=== PATIENT | female | born 1955 | race Caucasian/White ===

== ENCOUNTER 2017-09-13 14:51 | Observation (INO) | payer BC, OTHER ==
[~2017-09-13] VITALS: Ht 162.6 cm; Wt 108.4 kg
[~2017-09-13 14:51] MED LIST: ARMOUR THYROID90 MG PO; ATORVASTATIN CA20 MG PO; BUPROPION HCL75 MG PO; CELEBREX PO; CLARITIN-D 241 EACH PO; CLARITIN10 MG PO; COREG3.125 MG PO; CYMBALTA30 MG PO; CYMBALTA60 MG PO; DIFLUCAN100 MG PO; DIOVAN160 MG PO; DUONEB 0.5 MG-33 ML IH; FLAGYL500 MG PO; FLONASE16 GM; HUMALOG MI100 UNIT/4 SQ; HUMALOG100 UNITS/ SC; IPRAT-ALBUT 0.5-3 ML INH; KEFLEX500 MG PO; LANTUS100 UNITS/ SC; LASIX40 MG PO; LEVEMIR 3M100 UNITS/ SQ; LISINOPRIL20 MG PO; METFORMIN HCL500 MG PO; MUCINEX600 MG PO; NEXIUM40 MG PO; PRAVASTATIN SOD20 MG PO; PREDNISONE10 MG PO; SYMBICORT 16010.2 GM IH; SYNTHROID112 MCG PO; TESSALON PERLE100 MG PO; TOUJEO SC; TUSSIN100 MG/5 M PO; VICTOZA 2-0.6 MG/0.1 SC
--- OUTSIDE RECORDS SUMMARY | 2017-09-13 14:54 | XMS REPORT | Summary of Care ---
Author Author Maribeth Almanzar Organization Unknown Address Unknown Phone Unavailable Care Team Providers [facility] [employer] Name Role Phone MARCELA Garay, LUIZ Unavailable Unavailable PAT Garay, JUAN Unavailable Unavailable DEBORAH Garay, EFRAÍN Unavailable Unavailable JOVANNI Garay, KIMBERLEE Unavailable Unavailable Maribeth Almanzar Unavailable Unavailable MARCELA CHARLES [place], LUIZ Woods Unavailable Unavailable ADELA CHARLES, MAYITO Unavailable Unavailable Unavailable Unavailable Functional Status Name Dates Details Functional status health issues are not documented Status: Name Dates Details Cognitive status health issues are not documented Status: Problems Name Dates Details Sleep apnea (780.57, G47.30) Status: Active Sleep talking (307.49, G47.8) Status: Active Obesity (278.00, E66.9) Status: Active ELISE (obstructive sleep apnea) (327.23, G47.33) Status: Active Flu vaccine need (V04.81, Z23) Status: Active Fibromyalgia (729.1, M79.7) Status: Active Bilateral pain of leg and foot (729.5, M79.604) Status: Active Anxiety (300.00, F41.9) Status: Active Lymph edema (457.1, I89.0) Status: Active Need for Zostavax administration (V04.89, Z23) Status: Active Need for pneumococcal vaccination (V03.82, Z23) Status: Active Decreased pedal pulses (785.9, R09.89) Status: Active Caloric malnutrition (263.9, E46) Status: Active Encounter for preventive health examination (V70.0, Z00.00) Status: Active Well woman exam (V72.31, Z01.419) Status: Active Hypotension (458.9, I95.9) Status: Active Abnormal mammography (793.80, R92.8) Status: Active Methotrexate, penitentiary, current use (V58.69, Z79.899) Status: Active Arthralgia of left hand (719.44, M25.542) Status: Active Arthralgia of right hand (719.44, M25.541) Status: Active Sacroiliitis (720.2, M46.1) Status: Active Posterior pain of hip, left (719.45, M25.552) Status: Active On methotrexate therapy (V58.69, Z79.899) Status: Active Bilateral low back pain without sciatica (724.2, M54.5) Status: Active Elevated alkaline phosphatase level (790.5, R74.8) Status: Active 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, E11.22 ) Status: Active Fistula (686.9, L98.8) Status: Active Postmenopausal estrogen deficiency (V49.81, Z78.0) Status: Active Malnutrition (263.9, E46) Status: Active Routine check-up (V70.0, Z00.00) Status: Active Diabetes mellitus type 2, uncontrolled (250.02, E11.65) Status: Active Hyperlipidemia (272.4, E78.5) Status: Active Major depressive disorder, recurrent, severe w/o psychotic behavior (296.33, F33.2) Status: Active Inflammatory polyarthropathy (714.9, M06.4) Status: Active Tachycardia (785.0, R00.0) Status: Active BMI 40.0-44.9, adult (V85.41, Z68.41) Status: Active Hypernatremia (276.0, E87.0) Status: Active Carbuncle (680.9, L02.93) Status: Active Malabsorption (579.9, K90.9) Status: Active Neuropathy, diabetic (250.60, E11.40) Status: Active Hypothyroidism (244.9, E03.9) Status: Active Need for influenza vaccination (V04.81, Z23) Status: Active Bariatric surgery status (V45.86, Z98.84) Status: Active COPD (chronic obstructive pulmonary disease) (496, J44.9) Status: Active Essential hypertension, benign (401.1, I10) Status: Active History of gastroesophageal reflux (GERD) (V12.79, Z87.19) Status: Active Breast screening (V76.10, Z12.31) Status: Active On etanercept therapy (V58.69, Z79.899) Status: Active Greater trochanteric bursitis of both hips (726.5, M70.61) Status: Active Influenza A (487.1, J10.1) Status: Active Asthma (493.90, J45.909) Status: Active Controlled type 2 diabetes mellitus without complication, with long-term current use of insulin (250.00, E11.9) Status: Active Posterior pain of hip, right (719.45, M25.551) Status: Active Chronic pain of both knees (719.46, M25.561) Status: Active Greater trochanteric bursitis of right hip (726.5, M70.61) Status: Active Encounter for monitoring leflunomide therapy (V58.83, Z51.81) Status: Active Encounter for monitoring of etanercept therapy (V58.83, Z51.81) Status: Active Long-term use of hydroxychloroquine (V58.69, Z79.899) Status: Active Seropositive rheumatoid arthritis of multiple sites (714.0, M05.79) Status: Active Labral tear of hip joint (843.8, S73.199A) Status: Active Medications Name Dates Details Loratadine 10 MG Oral Tablet TAKE 1 TABLET EVERY MORNING NEEDED. Active Levothyroxine Sodium 100 MCG Oral Tablet TAKE 1 TABLET DAILY * Quantity: 90 Refills: 1 EFRAÍN CABRERA M.D. * Start : 07-May-2017 Active Pantoprazole Sodium 40 MG Oral Tablet Delayed Release TAKE 1 TABLET DAILY * Quantity: 90 Refills: 1 LUIZ MEDRANO M.D. Active BD Pen Needle Mini U/F 31G X 5 MM USE DIRECTED TO INJECT INSULIN 6 TIMES DAILY * Quantity: 2 Refills: 3 EFRAÍN CABRERA M.D. * Start : 13-Nov-2014 Active 100 Miscellaneous Box Accu-Chek SmartView In Vitro Strip check BG 4xs daily as directed * Quantity: 2 Refills: 3 EFRAÍN CABRERA M.D. * Start : 15-Nov-2014 Active 100 Strip Box Accu-Chek FastClix Lancets use as directed to check BG 4xs daily as directed * Quantity: 2 Refills: 3 DEBORAH Garay, EFRAÍN * Start : 15-Nov-2014 Active 102 Miscellaneous Box Tammie OrtizoStar 300 UNIT/ML Subcutaneous Solution Pen-injector inject 30 U SC qHS MDD:50 U * Quantity: 1 Refills: 2 DEBORAH Garay, EFRAÍN * Start : 15-Nov-2014 Active 3 x 1.5 ML Pen HumaLOG KwikPen 200 UNIT/ML Subcutaneous Solution Pen-injector inject 10 U w/breakfast and lunch and 12 U w/dinner SC plus CF 1:50>150 mg/dL MDD:50 U * Quantity: 1 Refills: 3 DEBORAH Garay, EFRAÍN Active 2 x 3 ML Pen Atorvastatin Calcium 20 MG Oral Tablet TAKE 1 TABLET AT BEDTIME. * Quantity: 90 Refills: 1 LUIZ MEDRANO M.D. * Start : 13-Nov-2014 Active CPAP Continuous Positive Airway Pressure Please provide patient with all necessary CPAP supplies including mask (please fit), tubing, filters, etc. Good for ONE YEAR until 08/06/16. * Quantity: 1 Refills: 0 KIMBERLEE BAIG M.D. * Start : 06-Aug-2015 Active Fluticasone Propionate 50 MCG/ACT Nasal Suspension USE 1 SPRAY IN EACH NOSTRIL TWICE DAILY. * Quantity: 1 Refills: 3 * Start : 15-Aug-2015 Active Losartan Potassium 25 MG Oral Tablet TAKE 1 TABLET DAILY * Quantity: 90 Refills: 1 LUIZ MEDRANO M.D. * Start : 28-Oct-2015 Active HydroCHLOROthiazide 25 MG Oral Tablet TAKE 1 TABLET DAILY * Quantity: 90 Refills: 1 LUIZ MEDRANO M.D. * Start : 11-Nov-2015 Active Enbrel SureClick 50 MG/ML Subcutaneous Solution Auto-injector Inject 50mg (1 mL) SC weekly as directed. * Quantity: 4 Refills: 6 JUAN STEWART M.D. * Start : 22-Nov-2015 Active 0.98 ML Syringe Leflunomide 10 MG Oral Tablet TAKE 1 TABLET DAILY DIRECTED. * Quantity: 90 Refills: 1 JUAN STEWART M.D. * Start : 02-Apr-2016 Active DULoxetine HCl - 60 MG Oral Capsule Delayed Release Particles TAKE 2 CAPSULES AT BEDTIME. * Refills: 0 Active Morphine Sulfate ER TB12 TAKE 1 TABLET (25 mg) DAILY NEEDED. * Refills: 0 Active Gabapentin 300 MG Oral Capsule take 1 tab PO TID * Quantity: 90 Refills: 0 EFRAÍN CABRERA M.D. * Start : 27-Feb-2015 Active 90 Capsule Bottle Vitamin D3 2000 UNIT Oral Tablet take 1 cap daily * Refills: 0 Active Biotin CAPS take 1 cap 1000 mg daily * Refills: 0 Active Multivitamins TABS TAKE 1 TABLET DAILY. * Refills: 0 Active TraZODone HCl - 100 MG Oral Tablet take one tablet at bedtime prn * Refills: 0 * Start : 28-Sep-2016 Active TiZANidine HCl - 2 MG Oral Capsule PT TAKES 1MG PRN * Refills: 0 * Start : 28-Sep-2016 Active Mupirocin Calcium 2 % External Cream APPLY AND GENTLY MASSAGE INTO AFFECTED AREA(S) TWICE DAILY. * Quantity: 30 Refills: 0 LUIZ MEDRANO M.D. * Start : 08-Oct-2016 Active Wellbutrin XL 300 MG Oral Tablet Extended Release 24 Hour TAKE 1 TABLET DAILY. * Refills: 0 * Start : 27-Jan-2017 Active MetFORMIN HCl - 1000 MG Oral Tablet TAKE 1 TABLET BY MOUTH TWICE A DAY WITH FOOD * Quantity: 180 Refills: 0 EFRAÍN CABRERA M.D. * Start : 16-Jun-2017 Active ProAir HFA 108 (90 Base) MCG/ACT Inhalation Aerosol Solution INHALE 1-2 PUFFS EVERY 4-6 HOURS NEEDED AND DIRECTED. * Quantity: 2 Refills: 1 LUIZ MEDRANO M.D. * Start : 23-Jun-2017 Active 8.5 GM Inhaler Hydroxychloroquine Sulfate 200 MG Oral Tablet TAKE 1 TABLET TWICE DAILY * Quantity: 180 Refills: 0 JUAN STEWART M.D. * Start : 02-Jul-2017 Active Oseltamivir Phosphate 75 MG Oral Capsule TAKE 1 CAPSULE TWICE DAILY WITH MEALS. * Quantity: 1 Refills: 0 LUIZ MEDRANO M.D. * Start : 05-Jul-2017 Active 10 Capsule Pack Promethazine-DM 6.25-15 MG/5ML Oral Syrup TAKE 5 ML EVERY 4 TO 6 HOURS NEEDED FOR COUGH. * Quantity: 240 Refills: 0 LUIZ MEDRANO M.D. * Start : 06-Jul-2017 Active Allergies and Adverse Reactions Name Dates Details Dust Mite Extract SOLN (Allergy) Status: Active Levemir (Allergy) Status: Active Animal dander (Allergy) Status: Active Animal dander (Allergy) Status: Active Bee sting (Allergy) Status: Active Pollen (Allergy) Status: Active Past Medical History Name Dates Details History of hypertension (V12.59, Z86.79) Status: Resolved History of Obstructive sleep apnea syndrome (327.23, G47.33) Status: Resolved History of rheumatoid arthritis (V13.4, Z87.39) Status: Resolved History of thyroid disease (V12.29, Z86.39) Status: Resolved Procedures Procedure Dates Details MR Hip wo contrast [id number] Date: 20-Aug-2017 History of Neuroplasty Median Nerve At Carpal Tunnel Completed History of Colonoscopy Completed History of Nasal Endoscopy Polypectomy Completed History of Tonsillectomy Completed History of Oral Surgery Tooth Extraction [place] Tooth Completed History of Hysterectomy Completed History of Corneal LASIK Bilateral Completed History of Cataract Surgery Completed History of Gastric Surgery For Morbid Obesity Gastric Bypass Completed Immunization Name Dates Details Fluzone INJ Lot #: [id number] on: 10-May-2015 Zoster (Zostavax) Lot #: [id number] on: 09-Oct-2015 Pneumovax 23 25 MCG/0.5ML Injection Injectable Lot #: [id number] on: 09-Oct-2015 PPD on: 17-Nov-2015 Fluzone Quadrivalent 0.5 ML Intramuscular Suspension Lot #: [id number] on: 16-Apr-2016 PPD, tuberculin skin test; purified protein derivative solution, intradermal on: 27-Sep-2016 Fluzone Quadrivalent 0.5 ML Intramuscular Suspension Lot #: [id number] on: 23-Jun-2017 Family History Name Dates Details Family history of cardiac disorder (V17.49, Z82.49) Status: Active Family history of diabetes mellitus (V18.0, Z83.3) Status: Active Family history of arthritis (V17.7, Z82.61) Status: Active Family history of arthritis (V17.7, Z82.61) Status: Active Family history of diabetes mellitus (V18.0, Z83.3) Status: Active Family history of depression (V17.0, Z81.8) Status: Active Family history of cardiac disorder (V17.49, Z82.49) Status: Active Family history of hypertension (V17.49, Z82.49) Status: Active Family history of osteoporosis (V17.81, Z82.62) Status: Active Family history of malignant neoplasm (V16.9, Z80.9) Status: Active Name Dates Details Family history of chronic obstructive pulmonary disease (V17.6, Z82.5) Status: Active Family history of obesity (V18.19, Z83.49) Status: Active Family history of malignant neoplasm of breast (V16.3, Z80.3) Status: Active Family history of malignant neoplasm (V16.9, Z80.9) Status: Active Family history of sleep apnea (V19.8, Z82.0) Status: Active Social History Name Dates Details - Status: Name Dates Details Former smoker Unknown if ever smoked Vital Signs Date Test Result Details :18 BP Systolic 113 mm[Hg] Status: Comments: Location: RUE; Position: Sitting BP Diastolic 73 mm[Hg] Status: Comments: Location: RUE; Position: Sitting Weight 228 lb Status: Body Mass Index Calculated 39.14 kg/m2 Status: Body Surface Area Calculated 2.07 m2 Status: Temperature 97.6 f Status: Comments: Method: Oral Heart Rate 93 /min Status: Respiration Rate 18 /min Status: Results Date Description Value Details [id number] MR Hip wo contrast [id number] Hip wo contrast MR SEE NOTES Comments: EXAMINATION: MRI of the right hip without contrastHISTORY: M25.551 Pain in right hip; right greater trochanteric bursitis;right hip labral tearCOMPARISON: There are no radiographs available for review.TECHNIQUE: Multiplanar, multisequence magnetic resonance imaging of the pelvisand right hip was performed with a local coil without contrast.FINDINGS:Right Hip:--Labrum: There is a tear of the anterosuperior right hip labrum near the 2o'clock position (series 5, images 16 through 18). The remainder the right hiplabrum appears intact on this non-arthrographic examination.--Cartilage and Bone: There is no focal chondral defect or subchondral marrowedema along the right femoral head or acetabulum.--Ligaments: The right ligamentum teres is intact. The right hip capsularligaments are intact.Bone: There is no acute fracture. There is no evidence of avascular necrosis ofeither hip. There is mild osteoarthrosis of the symphysis pubis and mildbilateral sacroiliac joint osteoarthritis.Muscles and Tendons: The common hamstring origin attachments are normalbilaterally. There is mild right gluteus minimus insertional tendinosis withincreased intratendinous signal, but no discrete tendon tear. The remainingtendinous attachments of the right hip are intact and normal. The right hipmuscles are normal.Soft Tissues: There is mild right greater trochanteric bursitis. The rightsciatic nerve is normal.Contralateral Left Hip: Limited evaluation of the contralateral left hip onlarge [id number] imaging demonstrates no gross intra-articular abnormality.Other: The uterus is surgically absent. There is colonic diverticulosis withoutevidence of acute diverticulitis. Visualized portions of the pelvis and lowerabdomen are unremarkable. Visualized portions of the lower lumbar spinedemonstrate advanced L5-S1 degenerative disc disease.IMPRESSION:1. Mild right greater trochanteric bursitis and mild right gluteus minimusinsertional tendinosis with increased intratendinous signal, but no discretetendon tear.2. Tear of the anterosuperior right hip labrum near the 2 o' clock position.3. No substantial focal right hip chondral defect or subchondral marrow edema.4. Mild osteoarthrosis of the symphysis pubis and mild bilateral sacroiliacjoint osteoarthritis.5. Limited imaging of the lower lumbar spine demonstrate advanced L5-[id number] disc disease.6. Colonic diverticulosis. Status post hysterectomy.--Read by: Stas Davis MDDictated Date/time: 09/09/17 15:56Electronically Signed by: Stas Davis MD 09/09/1815:06FINAL REPORT Plan of Care Name Dates Details Planned Observations Planned Goals not documented Planned Encounters Appointment; EFRAÍN CABRERA M.D. On: 15-Sep-2017 8:00 Appointment; JUAN STEWART M.D. On: 17-Sep-2017 9:00 Appointment; LUIZ MEDRANO M.D. On: 16-Dec-2017 9:00 Instructions Name Dates Details Instructions not documented Encounters Appointment; JUAN STEWART M.D. Encounter Diagnosis: Problem not documented On: 16-Sep-2015 8:30 Appointment; LUIZ MEDRANO M.D. Encounter Diagnosis: Problem not documented On: 09-Oct-2015 9:00 Appointment; CLARY ECHO Encounter Diagnosis: Problem not documented On: 15-Oct-2015 14:00 Appointment; JAIME JORDAN M.D. Encounter Diagnosis: Problem not documented On: 23-Oct-2015 10:15 Appointment; EFRAIN MLADONADO NP Encounter Diagnosis: Problem not documented On: 28-Oct-2015 8:00 Appointment; EFRAIN MALDONADO NP Encounter Diagnosis: Problem not documented On: 11-Nov-2015 8:00 Appointment; JUAN STEWART M.D. Encounter Diagnosis: Problem not documented On: 18-Nov-2015 8:30 Appointment; EFRAÍN CABRERA M.D. Encounter Diagnosis: Problem not documented On: 20-Nov-2015 8:00 Appointment; EFRAIN MALDONADO NP Encounter Diagnosis: Problem not documented On: 20-Nov-2015 9:00 [facility] [place] Encounter Diagnosis: Problem not documented On: 06-Dec-2015 13:20 Appointment; JAIME JORDAN M.D. Encounter Diagnosis: Problem not documented On: 25-Dec-2015 10:00 Appointment; JAIME JORDAN M.D. Encounter Diagnosis: Problem not documented On: 01-Jan-2016 10:45 Appointment; JUAN STEWART M.D. Encounter Diagnosis: Problem not documented On: 22-Jan-2016 8:00 Appointment; EFRAÍN CABRERA M.D. Encounter Diagnosis: Problem not documented On: 20-Feb-2016 8:00 Appointment; JUAN STEWART M.D. Encounter Diagnosis: Problem not documented On: 02-Apr-2016 9:00 Appointment; LUIZ MEDRANO M.D. Encounter Diagnosis: Problem not documented On: 16-Apr-2016 10:45 Appointment; JAIME JORDAN M.D. Encounter Diagnosis: Problem not documented On: 06-May-2016 11:00 Appointment; EFRAÍN CABRERA M.D. Encounter Diagnosis: Problem not documented On: 28-May-2016 8:30 Appointment; JUAN STEWART M.D. Encounter Diagnosis: Problem not documented On: 28-May-2016 10:30 Appointment; BOB [address] Encounter Diagnosis: Problem not documented On: 16-Jun-2016 13:30 Appointment; RAOUL ALMANZA D.O. Encounter Diagnosis: Problem not documented On: 22-Jun-2016 10:00 Appointment; TOÑO PHAN DDS Encounter Diagnosis: Problem not documented On: 02-Sep-2016 14:30 Appointment; EFRAÍN CABRERA M.D. Encounter Diagnosis: Problem not documented On: 03-Sep-2016 9:00 Appointment; JUAN STEWART M.D. Encounter Diagnosis: Problem not documented On: 28-Sep-2016 8:00 Appointment; LUIZ MEDRANO M.D. Encounter Diagnosis: Problem not documented On: 08-Oct-2016 10:45 Appointment; JAIME JORDAN M.D. Encounter Diagnosis: Problem not documented On: 25-Nov-2016 14:00 Appointment; EFRAÍN CABRERA M.D. Encounter Diagnosis: Problem not documented On: 26-Nov-2016 16:00 Appointment; JAYMIE GUADALUPE NP Encounter Diagnosis: Problem not documented On: 06-Jan-2017 13:00 Appointment; JUAN STEWART M.D. Encounter Diagnosis: Problem not documented On: 27-Jan-2017 10:00 Appointment; JAIME JORDAN M.D. Encounter Diagnosis: Problem not documented On: 10-Feb-2017 10:00 Appointment; JUAN STEWART M.D. Encounter Diagnosis: Problem not documented On: 04-Mar-2017 10:00 Appointment; TOÑO PHAN DDS Encounter Diagnosis: Problem not documented On: 05-Mar-2017 14:00 Appointment; TOÑO PHAN DDS Encounter Diagnosis: Problem not documented On: 31-Mar-2017 15:30 Appointment; JAIME JORDAN M.D. Encounter Diagnosis: Problem not documented On: 07-Apr-2017 10:00 Appointment; TOÑO PHAN DDS Encounter Diagnosis: Problem not documented On: 07-Apr-2017 14:00 Appointment; TOÑO PHAN DDS Encounter Diagnosis: Problem not documented On: 19-May-2017 14:00 Appointment; EFRAÍN CABRERA M.D. Encounter Diagnosis: Problem not documented On: 16-Jun-2017 10:30 Appointment; TOÑO PHAN DDS Encounter Diagnosis: Problem not documented On: 16-Jun-2017 13:30 Appointment; LUIZ MEDRANO M.D. Encounter Diagnosis: Problem not documented On: 23-Jun-2017 10:30 Appointment; JUAN STEWART M.D. Encounter Diagnosis: Problem not documented On: 02-Jul-2017 9:00 Appointment; LUIZ MEDRANO M.D. Encounter Diagnosis: Problem not documented On: 05-Jul-2017 9:30 Appointment; TOÑO PHAN DDS Encounter Diagnosis: Problem not documented On: 21-Jul-2017 13:30 Appointment; TOÑO PHAN DDS Encounter Diagnosis: Problem not documented On: 18-Aug-2017 13:30 Appointment; JUAN STEWART M.D. Encounter Diagnosis: Problem not documented On: 20-Aug-2017 9:00
--- NOTE | 2017-09-13 15:51 | Diagnostic Imaging Report ---
Examination: CT BRAIN WITHOUT CONTRAST History:Fall. Head injury. Dizziness. Comparison studies:None Technique: Axial images were obtained from the skull base to the vertex. Coronal and sagittal images reconstructed from the axial data. Intravenous contrast: None Findings: Scalp: Small midline posterior vertex scalp hematoma. Bones: No fractures, blastic or lytic lesions. Brain sulci: Appropriate for age. Ventricles: Normal in size and configuration. No hydrocephalus. Extra-axial space: No abnormalities. Parenchyma: No abnormal densities. No masses, hemorrhage, or acute or chronic cortical based vascular insults. Sellar/suprasellar region: No abnormalities. Craniocervical junction: Patent foramen magnum. No Chiari one malformation. Incidental findings: None. Impression: 1. Small midline posterior vertex scalp hematoma. 2. No acute intracranial abnormalities. Signed by: Dr. Soledad Cullen M.D. on 09/13/2017 3:47 PM
--- NOTE | 2017-09-13 16:09 | Diagnostic Imaging Report ---
PROCEDURE: A single AP view of the chest. COMPARISON: Chest radiograph 12/11/2014 INDICATIONS: FELL AND LOST CONSCIOUS FINDINGS: Lines/tubes: None. Lungs: The lungs are well inflated and clear. There is no evidence of pneumonia or pulmonary edema. Pleura: There is no pleural effusion or pneumothorax. Heart and mediastinum: The heart and the mediastinum are unremarkable. Bones: No acute bony abnormality. IMPRESSION: No acute cardiopulmonary disease. Dictated by: Rafael Martinez M.D. on 09/13/2017 at 16:09 Electronically approved by: Rafael Martinez M.D. on 09/13/2017 at 16:09
[2017-09-13] MEDS ORDERED: LIDOCAINE HCL 2% LOCAL 20 ML VIAL INJ STA (17:04)
[2017-09-13 17:30] LABS: BASOPHILS # (AUTO) 0.1 (0.0-0.1); BASOPHILS % 0.8 % (0.0-1.0); EOSINOPHILS # (AUTO) 0.2 (0.0-0.4); EOSINOPHILS % 2.1 % (0.0-6.0); HEMOGLOBIN 13.5 g/dL (12.0-16.0); LYMPHOCYTES # (AUTO) 3.2 (1.0-3.2); LYMPHOCYTES % 31.3 % (18.0-39.1); MEAN CORPUSCULAR HEMOGLOBIN 30.3 pg (28-32); MEAN CORPUSCULAR HGB CONC 34.6 g/dL (31-35); MEAN CORPUSCULAR VOLUME 87.6 fL (81-99); MONOCYTES # (AUTO) 1.2 (0.2-0.8); MONOCYTES % 11.4 % (4.4-11.3); NEUTROPHILS # (AUTO) 5.6 (2.1-6.9); NEUTROPHILS % 54.2 % (38.7-80.0); PLATELET COUNT 265 x10e3/uL (140-360); RED BLOOD COUNT 4.45 x10e6/uL (3.6-5.1); RED CELL DISTRIBUTION WIDTH 13.2 % (11.7-14.4)
[2017-09-13] MEDS ORDERED: HYDROXYCHLOROQ200 MG PO (17:33)
[2017-09-13] MEDS ORDERED: LEFLUNOMIDE10 MG PO (17:33)
[2017-09-13] MEDS ORDERED: BUPROPION HCL75 MG PO (17:33)
[2017-09-13] MEDS ORDERED: PANTOPRAZOLE SO20 MG PO (17:33)
[2017-09-13] MEDS ORDERED: HYDROCHLOROTHIA25 MG PO (17:33)
[2017-09-13] MEDS ORDERED: GABAPENTIN300 MG PO (17:33)
[2017-09-13 17:38] LABS: INR 0.93; PROTHROMBIN TIME 11.7 seconds (11.9-14.5)
[2017-09-13 17:39] LABS: PARTIAL THROMBOPLASTIN TIME 24.7 seconds (23.8-35.5)
[2017-09-13] MEDS ORDERED: MS CONTIN15 MG PO (17:40)
[2017-09-13] MEDS ORDERED: TRAZODONE HCL100 MG PO (17:40)
[2017-09-13] MEDS ORDERED: OXCARBAZEPINE300 MG PO (17:40)
[2017-09-13] MEDS ORDERED: METFORMIN HCL500 MG PO (17:40)
[2017-09-13] MEDS ORDERED: VITAMIN D32000 UNIT PO (17:40)
[2017-09-13] MEDS ORDERED: LOSARTAN POTASS25 MG PO (17:40)
[2017-09-13] MEDS ORDERED: BIOTIN2500 MCG PO (17:40)
[2017-09-13] MEDS ORDERED: BUPRENORPHINE BU (17:40)
[2017-09-13 17:48] LABS: ALANINE AMINOTRANSFERASE 27 IU/L (0-55); ALKALINE PHOSPHATASE 82 IU/L (40-150); ANION GAP 17.5 mmol/L (8-16); BLOOD UREA NITROGEN 20 mg/dL (7-26); BUN/CREATININE RATIO 21 (6-25); CALCIUM 9.6 mg/dL (8.4-10.2); CARBON DIOXIDE 29 mmol/L (22-29); CHLORIDE 88 mmol/L (98-107); CREATINE KINASE 167 IU/L (29-168); CREATININE, SERUM 0.96 mg/dL (0.57-1.11); EST GLOMERULAR FILTRATION RATE 59 ML/MIN (60-); MAGNESIUM 2.4 MG/DL (1.3-2.1); POTASSIUM 3.5 mmol/L (3.5-5.1); SODIUM 131 mmol/L (136-145)
[2017-09-13 17:56] LABS: GLUCOSE 59 mg/dL (74-118)
[2017-09-13] MEDS ORDERED: DEXTROSE 50% SYRINGE 50 ML IV PRN (19:00)
--- OUTSIDE RECORDS SUMMARY | 2017-09-13 19:20 | XMS REPORT | Clinical Summary ---
Author Author [facility] Address Unknown Phone Unavailable Care Team Providers Care Mold Inspector Name Role Phone Tegan Riley MD PCP Allergies Active Allergy Reactions Severity Noted Date Comments Insulin Detemir Rash Low 03/05/2017 Current Medications Prescription Sig. Disp. Refills Start End Date Status Date fluticasone (FLONASE) 50 2 sprays by Each Nare Active mcg/actuation nasal spray route as needed for rhinitis. biotin (NOE BIOTIN) Take by mouth. Active 10,000 mcg capsule gabapentin (NEURONTIN) Take 300 mg by mouth 3 Active 300 mg capsule (three) times a day. hydroCHLOROthiazide Take 25 mg by mouth Active (HYDRODIURIL) 25 MG daily. tablet leflunomide (ARAVA) 10 MG Take 10 mg by mouth Active tablet daily. loratadine (CLARITIN) 10 Take 10 mg by mouth as Active mg tablet needed for allergies. losartan (COZAAR) 25 MG Take 25 mg by mouth Active tablet daily. multivitamin with iron Take by mouth. Active tablet morPHINE (MSIR) 15 MG Take 15 mg by mouth every Active tablet 4 (four) hours as needed for severe pain. pantoprazole (PROTONIX) Take 40 mg by mouth Active 40 MG EC tablet daily. tiZANidine (ZANAFLEX) 2 Take 2 mg by mouth every Active MG tablet 8 (eight) hours as needed for muscle spasms. traZODone (DESYREL) 100 Take 100 mg by mouth Active MG tablet nightly as needed for sleep. cholecalciferol, vitamin Take 2,000 Units by mouth Active D3, (VITAMIN D3) 2,000 daily. unit capsule capsule buPROPion XL (WELLBUTRIN Take 450 mg by mouth Active XL) 150 MG 24 hr tablet daily. insulin lispro (HumaLOG) Inject 12 Units under the Active 100 unit/mL injection skin 3 (three) times a day before meals. insulin lispro (HumaLOG) Inject 10 Units under the Active 100 unit/mL injection skin nightly. INSULIN Inject 32 Units under the Active GLARGINE,HUM.REC.ANLOG skin daily. (TOUTETO SOLOSTAR SUBQ) etanercept (ENBREL) 50 Inject 50 mg under the Active mg/mL (0.98 mL) injection skin once a week. levothyroxine (SYNTHROID, Take 100 mcg by mouth Active LEVOXYL) 100 mcg tablet daily. DULoxetine (CYMBALTA) 60 Take 120 mg by mouth Active MG capsule daily. sodium chloride (OCEAN 1 spray into each nostril 15 mL 0 03/11/20 NASAL) 0.65 % nasal spray as needed for congestion 17 17 or rhinitis for up to 30 days. amoxicillin-pot Take 1 tablet by mouth 2 14 tablet 0 03/11/20 clavulanate (AUGMENTIN) (two) times a day for 7 17 17 875-125 mg per tablet days. traMADol-acetaminophen Take 1 tablet by mouth 30 tablet 0 03/11/20 03/16/20 (ULTRACET) 37.5-325 mg every 4 (four) hours as 17 17 per tablet needed for mild pain or moderate pain for up to 5 days. Active Problems Not on file Encounters Date Type Specialty Care Team Description 03/11/2017 [facility] Orthopedic Surgery Albert Matute DDS Caries ( Primary Dx) Encounter 03/11/2017 Procedure Pass Orthopedic Surgery 03/11/2017 Surgery Orthopedic Surgery Albert Matute DDS EXTRACTION ERUPTED TOOTH X 8, BONE GRAFT OF MANDIBLE, BONE GRAFT OF MAXILLA 03/05/2017 Pre-Admit Pre-Admission Testing Albert Matute DDS Preop testing (Primary Testing Dx) Appointment 03/05/2017 Anesthesia Orthopedic Surgery Gladis Vuong APRN Event after 09/12/2016 Social History Tobacco Use Types Packs/Day Years Used Date Former Smoker Alcohol Use Drinks/Week oz/Week Comments Yes socially Sex Assigned at Date Recorded Not on file Last Filed Vital Signs Vital Sign Reading Time Taken Blood Pressure 162/72 03/11/2017 4:31 PM CDT Pulse 91 03/11/2017 4:31 PM CDT Temperature 36.4 C (97.6 F) 03/11/2017 3:41 PM CDT Respiratory Rate 15 03/11/2017 4:31 PM CDT Oxygen Saturation 97% 03/11/2017 4:31 PM CDT Inhaled Oxygen - - Concentration Weight 107 kg (235 lb 14.4 oz) 03/11/2017 5:50 AM CDT Height 162.6 cm (5' 4") 03/11/2017 5:50 AM CDT Body Mass Index 40.49 03/11/2017 5:50 AM CDT Plan of Treatment Health Maintenance Due Date Last Done Comments PAP SMEAR 1975 COLONOSCOPY 2004 MAMMOGRAM 2004 ZOSTER VACCINE 2014 INFLUENZA VACCINE 02/16/2017 Implants Implanted Type Area Clinical Research Assistant Device Expiration Model / Identifier Date Serial / Lot Membrane Clgn Bilayer Resbl Guided Human N/A: N/A / Tiss [id number] Bio-Gide - [id number] Tissue / Implanted: Qty: 1 on 03/11/2017 by Implants Albert Matute DDS Granule Canc Bone Grftng Dental Human N/A: [id number] / 0.25-1.0mm 5.0gr Bio-Oss - Tissue Mandible / [id number] Implants [id number] Implanted: Qty: 1 on 03/11/2017 by Albert Matute DDS Granule Jefferson Canc 80% Jefferson 5ml Human N/A: MUSCULOSKELETAL 08/13/2019 [id number] / 0.5-5mm Algrft Ldr - Tissue Mandible TRANSPLANT [id number] - [id number] Implants [facility] 1077 / Implanted: Qty: 1 on 03/11/2017 by [id number] Albert Matute DDS 1077 Kit Bone Grft Lmbr Tprd 2.8ml Sm Human N/A: [employer] 09/15/2018 [id number] / Infuse - [id number] Tissue Mandible SPINAL AND / Implanted: Qty: 1 on 03/11/2017 by Implants [employer]OLOG[employer] [id number] Albert Matute DDS Membrane Clgn Bilayer Resbl Guided Human N/A: N/A / Tiss [id number] Bio-Gide - [id number] Tissue / Implanted: Qty: 1 on 03/11/2017 by Implants Albert Matute DDS Granule Jefferson Canc 80% Jefferson 5ml Human N/A: MUSCULOSKELETAL 08/13/2019 [id number] / 0.5-5mm Algrft Ldr - Tissue Mandible TRANSPLANT [id number] - [id number] Implants [facility] 1069 / Implanted: Qty: 1 on 03/11/2017 by [id number] Albert Matute DDS 1069 Membrane Clgn Bilayer Resbl Guided Human N/A: N/A / Tiss [id number] Bio-Gide - [id number] Tissue / Implanted: Qty: 1 on 03/11/2017 by Implants Albert Matute DDS Procedures Procedure Name Priority Date/Time Associated Diagnosis Comments NJ AN ELECTIVE Routine 03/11/2017 ENDOTRACHEAL AIRWAY 8:01 AM CDT Procedure Note - Rojelio Altman, RAIL TRANSPORTATION OPERATOR - 03/11/2017 7:47 AM CDT Airway Date/Time: 03/11/2017 7:47 AM Performed by: ROJELIO ALTMAN Authorized by: SAMANTHA LO Location: OR Urgency: Elective Difficult Airway: No Preoxygena hermilo with 100% O2: Yes C-spine Precaution s Maintained Throughout : Yes Mask Ventilatio n: Easy mask Final Airway Type: Endotrache al airway Final Endotrache al Airway: ETT Cuffed: Yes Technique Used: Direct laryngosco py Devices/Me thods Used in Placement: Cricoid pressure Insertion Site: Right nare Blade Type: Gonzalez Laryngosco pe Blade/Vide olaryngosc ope Blade Size: 2 Cuff at minimum occlusion pressure: Yes Measured from: Nares ETT to Nares (cm): 26 Placement Verified by: CO2 detection, direct visualizat ion and equal breath sounds Laryngosco pic view: Grade I - full view of glottis Rapid Sequence Induction (RSI): No Modified RSI: No Number of Attempts at Approach: 1 DLUV X1. Rakel forcepd used. Atraumatic EXTRACTION ERUPTED TOOTH 03/11/2017 K02.9 X 8, BONE GRAFT OF 7:15 AM CDT MANDIBLE, BONE GRAFT OF MAXILLA after 09/12/2016 Results * POC glucose (03/11/2017 12:56 PM) Only the most recent of 2 results within the time period is included. Component Value Ref Range POC glucose 216 (H) 65 - 99 mg/dL Comment: [facility] Notified RN Meter ID: [id number] Associate Trainer: Sarah Acevedo Specimen Performing Laboratory [facility] DEPARTMENT OF PATHOLOGY AND GENOMIC MEDICINE [address] [place], [place] [id number] * ECG Pre/Post Op (03/05/2017 4:27 PM) Component Value Ref Range Ventricular rate 81 Atrial rate 81 NJ interval 170 QRSD interval 150 QT interval 448 QTC interval 520 P axis 1 59 QRS axis 1 142 T wave axis 28 EKG impression Normal sinus rhythm-Right bundle branch block-Left posterior fascicular block-^^^ Bifascicular block ^^^-Abnormal ECG-No previous ECGs available- Specimen Performing Laboratory [facility] MUSE [address] [place] [id number] * Estimated GFR (03/05/2017 4:18 PM) Component Value Ref Range GFR Non Af Amer 56 (A) mL/min/1.73 m2 GFR Af Amer 68 mL/min/1.73 m2 Comment: Chronic kidney disease: <60 mL/min/1.73m2 Kidney failure: <15 mL/min/1.73m2 The estimated GFR is calculated from the IDMS-traceable Modification of Diet in Renal Disease Equation. The accuracy of the calculation is poor when the creatinine is normal. Calculated values >90 mL/min/1.73m2 are not reported. This equation has not been validated in children (<18 years), women, the elderly (>70 years), or ethnic groups other than Caucasians and Americans. Specimen Performing Laboratory Plasma specimen [facility] DEPARTMENT OF PATHOLOGY AND GENOMIC MEDICINE [address] [place] [id number] * CBC hemogram (03/05/2017 4:18 PM) Component Value Ref Range WBC 7.61 4.50 - 11.00 k/uL RBC 4.31 4.20 - 5.50 m/uL HGB 13.4 12.0 - 16.0 g/dL HCT 41.6 37.0 - 47.0 % MCV 96.5 82.0 - 100.0 fL MCH 31.1 27.0 - 34.0 pg MCHC 32.2 31.0 - 37.0 g/dL RDW - SD 47.8 37.0 - 55.0 fL MPV 10.5 8.8 - 13.2 fL Platelet count 254 150 - 400 k/uL Nucleated RBC 0.30 /100 WBC Specimen Performing Laboratory Blood [facility] DEPARTMENT OF PATHOLOGY AND GENOMIC MEDICINE [address] [place] [id number] * Hemoglobin A1c (03/05/2017 4:18 PM) Component Value Ref Range Hemoglobin A1C 6.0 (H) 4.0 - 5.6 % Comment: HbA1c cutoffs for diagnosing diabetes: 4.0% - 5.6%=normal 5.7% - 6.4%=increased risk for diabetes (prediabetes) >=6.5%=diabetes Goals for glycemic control (ADA 2016) < 7.0% Target for non adults with diabetes. More or less stringent targets may be appropriate for individual patients. <7.5% Target for Children and adolescents with type 1 diabetes. Specimen Performing Laboratory Blood [facility] OF PATHOLOGY AND GENOMIC MEDICINE [address] [place] [id number] * Basic metabolic panel (03/05/2017 4:18 PM) Component Value Ref Range Sodium 148 135 - 148 mEq/L Potassium 3.3 (L) 3.5 - 5.0 mEq/L Chloride 98 98 - 112 mEq/L CO2 31 24 - 31 mEq/L Anion gap 19 (H) 7 - 15 mEq/L Comment: Starting from October , anion gap calculation no longer incorporates potassium. Please note the change. BUN 27 (H) 8 - 23 mg/dL Creatinine 1.0 (H) 0.5 - 0.9 mg/dL Glucose 74 65 - 99 mg/dL Calcium 10.1 8.8 - 10.2 mg/dL Specimen Performing Laboratory Plasma specimen [facility] DEPARTMENT OF PATHOLOGY AND GENOMIC MEDICINE [address] [place] [id number] after 09/12/2016 Insurance Payer Benefit Subscriber ID Type Phone Address Plan / Group [facility] xxxxxxxxx HMO/PPO THCARE CHOICE/CHO ICE + [facility] [place] [address]
--- OUTSIDE RECORDS SUMMARY | 2017-09-13 19:20 | XMS REPORT ---
Author Author [facility] Address Unknown Phone Unavailable Care Team Providers Care Hogshead Dumper Name Role Phone NA YANEZ Unavailable Unavailable Problems This patient has no known problems. Allergies, Adverse Reactions, Alerts This patient has no known allergies or adverse reactions. Medications This patient has no known medications. Results Test Description Test Time Test Comments Text Results Atomic Results Result Comments CT BRAIN WO [place] [address] Patient Name: IJEOMA ÁLVAREZ MR #: [id number] : 1955 Age/Sex: 62/F Req #: [id number] Adm Physician: Ordered by: DONG MACE ENROLLMENT CLERK Report #: [id number] Location: ER Room/Bed: Procedure: [id number] CT/CT BRAIN WO Exam Date: Exam Time: REPORT STATUS: Signed Examination: CT BRAIN WITHOUT CONTRAST History:Fall. Head injury. Dizziness. Comparison studies:None Technique: Axial images were obtained from the skull base to the vertex. Coronal and sagittal images reconstructed from the axial data. Intravenous contrast: None Findings: Scalp: Small midline posterior vertex scalp hematoma. Bones: No fractures, blastic or lytic lesions. Brain sulci: Appropriate for age. Ventricles: Normal in size and configuration. No hydrocephalus. Extra- axial space: No abnormalities. Parenchyma: No abnormal densities. No masses, hemorrhage, or acute or chronic cortical based vascular insults. Sellar/suprasellar region: No abnormalities. Craniocervical junction: Patent foramen magnum. No Chiari one malformation. Incidental findings: None. Impression: 1. Small midline posterior vertex scalp hematoma. 2. No acute intracranial abnormalities. Signed by: Dr. Soledad Cullen M.D. on 09/13/2017 3:47 PM Dictated By: SOLEDAD MONACO MD 46 Transcribed By: DANIEL on 09/13/171546 COPY TO: DONG MACE NP CHEST SINGLE (PORTABLE) [place] [address] Patient Name: IJEOMA ÁLVAREZ MR #: [id number] : 1955 Age/Sex: 62/F Req #: [id number] Adm Physician: Ordered by: DONG MACE ENROLLMENT CLERK Report #: [id number] Location: ER Room/Bed: Procedure: [id number] DX/CHEST SINGLE (PORTABLE) Exam Date: 09/13/17 Exam Time: 1530 REPORT STATUS: Signed PROCEDURE: A single AP view of the chest. COMPARISON: Chest radiograph 12/11/2014 INDICATIONS: FELL AND LOST CONSCIOUS FINDINGS: Lines/tubes: None. Lungs: The lungs are well inflated and clear. There is no evidence of pneumonia or pulmonary edema. Pleura: There is no pleural effusion or pneumothorax. Heart and mediastinum: The heart and the mediastinum are unremarkable. Bones: No acute bony abnormality. IMPRESSION: No acute cardiopulmonary disease. Dictated by: Rafael Figueroa M.D. on 09/13/2017 at 16:09 Electronically approved by: Rafael Figueroa M.D. on 09/13/2017 at 16:09 Dictated By: RAFAEL FIGUEROA MD 1607 Transcribed By: LUCIANA on 09/13/17 1609 COPY TO: DONG MACE NP
[2017-09-13] MEDS: INSULIN REGULAR, HUMAN 100 UNIT/1 ML 3ML VIAL SQ SCH (19:24)
[2017-09-13] MEDS ORDERED: ACETAMINOPHEN 325 MG TAB PO ONE (20:15)
[2017-09-13 20:19] LABS: BILIRUBIN,URINE NEGATIVE (NEGATIVE); CLARITY,URINE CLEAR (CLEAR); COLOR,URINE YELLOW (YELLOW); KETONES,URINE NEGATIVE (NEGATIVE); LEUKOCYTE ESTERASE ,URINE NEGATIVE (NEGATIVE); NITRITE,URINE NEGATIVE (NEGATIVE); PROTEIN,URINE DIPSTICK NEGATIVE (NEGATIVE); URINE UROBILINOGEN 0.2 mg/dL (0.2 - 1)
[2017-09-13 20:32] LABS: EPITHELIAL CELLS,URINE RARE /LPF; TRANSITIONAL EPI CELLS,URINE RARE
[2017-09-13 22:17] VITALS: BP 143/68
[2017-09-13] MEDS: SODIUM CHLORIDE 0.9% 1000ML 1,000 ML IV SCH (22:38)
[2017-09-13] MEDS: ACETAMINOPHEN/CODEINE 300MG - 30MG TAB PO PRN (23:06)
[2017-09-13 23:23] VITALS: BP 143/68
[2017-09-14] VITALS (8 sets, daily range): BP systolic 66–136; BP diastolic 53–78
[2017-09-14] MEDS: SODIUM CHLORIDE 0.9% 1000ML 1,000 ML IV SCH ×3 (02:54→18:24)
[2017-09-14] MEDS: ACETAMINOPHEN/CODEINE 300MG - 30MG TAB PO PRN ×5 (03:36→23:02)
[2017-09-14] MEDS: INSULIN REGULAR, HUMAN 100 UNIT/1 ML 3ML VIAL SQ SCH ×4 (07:30→19:40)
[2017-09-14] MEDS ORDERED: SODIUM CHLORIDE 452MG TAB PO NR (10:15)
[2017-09-14] MEDS ORDERED: POTASSIUM CHLORIDE 20 MEQ TAB CR PO NR (10:15)
[2017-09-14] MEDS ORDERED: MORPHINE SULFATE 15MG TAB CR PO PRN (10:45)
[2017-09-14 11:33] LABS: FREE THYROXINE INDEX 1.9223 (1.4-3.8); THYROID STIMULATING HORMONE 2.892 uIU/mL (0.350-4.940)
--- NOTE | 2017-09-14 11:51 | History and Physical ---
CLINICAL HISTORY: This is a 62-year-old white woman admitted via the emergency room because of syncope. This patient is taking multiple medications including numerous psychotropic medications and pain medications including several powerful narcotics. Additionally, she has insulin-dependent diabetes. She apparently was putting stuff in her trunk when she became unconscious. She woke up on the floor, striking the back of her head. A neighbor was looking at her when she woke up. She came to the emergency room. Workup was negative except for blood sugar of low 60s. It was then decided that she had become syncopal because of hypoglycemia. However, the patient states that in the past she has woken up in the middle of the night with blood sugar in the 40s without syncope. She has no previous history of cardiac condition. She denies any palpitations or chest pains. Her EKG, however, did show prolonged QT, and she is taking several medications that can do that including Wellbutrin, Plaquenil, and Belbuca. Additionally, she is also taking gabapentin and duloxetine, potentially at high dose may cause problems. She is taking hydrochlorothiazide for peripheral edema. She is drinking lots of fluids. Her sodium was 130. There is history of asthma, but she is not on any asthma medications. There is unclear history of rheumatoid arthritis possibly resulting in her taking several rheumatoid arthritis medications as well as chronic pain medications. Three years ago, she was hospitalized here, and there was no mention of arthritis in her diagnosis. Other past medical history included hypothyroidism, obstructive sleep apnea using CPAP machine, hypertension, obesity. PERSONAL AND SOCIAL HISTORY: She rarely drinks. Stopped smoking. 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 ALLERGIES: LEVEMIR. MEDICATIONS AT HOME 1. BuSpar 15 mg. 2. Cymbalta 120 mg daily. 3. Gabapentin 300 mg t.i.d. 4. Trazodone 100 mg at bedtime p.r.n. 5. Hydrochlorothiazide 25 mg daily. 6. Hydroxychloroquine 200 mg. 7. Lispro insulin 10 units a.c. t.i.d. 8. Toujeo 32 units subcutaneous in the morning. 9. MS Contin. 10. Belbuca 75 mcg b.i.d. 11. Pantoprazole. 12. Biotin. 13. Vitamin D3. 14. Atorvastatin. 15. Leflunomide 10 mg p.o. daily. 16. Levothyroxine 112 mcg daily. 17. Claritin. 18. Losartan 25 mg daily. 19. Metformin 1,000 mg b.i.d. 20. Oxcarbazepine 300 mg p.o. nightly. REVIEW OF SYSTEMS: Noncontributory. PHYSICAL EXAMINATION GENERAL: She is obese. VITAL SIGNS: Stable. CARDIAC: Jugular veins are not distended. S1, S2 were regular. There is no appreciable murmur. LUNGS: Clear. ABDOMEN: Soft. Bowel sounds are present. EXTREMITIES: No cyanosis, clubbing or edema. LABORATORY STUDIES: Sodium is 131, potassium 3.5. BUN is 20 and creatinine 0.96. White count 10,200, hemoglobin 13.5, platelet count 265,000. IMPRESSION 1. New onset of seizure of uncertain etiology, likely to be cardiac arrhythmia or seizure disorder rather than hypoglycemia since her blood sugar is not low enough to be causing the syncope. 2. Mild hypoglycemia on insulin and Toujeo. 3. Questionable history of partial seizures on oxcarbazepine. 4. Hyponatremia. Serum sodium 131. Possibly due to hydrochlorothiazide or oxcarbazepine. 5. History of sleep apnea on continuous positive airway pressure. 6. Hypothyroidism. 7. Hypertension. 8. Hyperlipidemia. 9. Insulin-dependent diabetes. 10. Obesity. 11. Asthma. 12. Scalp hematoma. 13. Polypharmacy. 14. Unclear history of rheumatoid arthritis. 15. Chronic narcotic usage. 16. Depression on multiple psychotropic medications. RECOMMENDATIONS: Discontinue as many medications as possible, particularly those that can cause prolonged QT including the above-mentioned medications. Decrease Cymbalta dose if possible. This patient will need to be weaned off her narcotics if possible. Thank you very much. Job#: [id number] cc:LUIZ MEDRANO M.D.
--- NOTE | 2017-09-14 17:31 | Consultation ---
DATE OF CONSULTATION: September 14, 2017 at 3:30 p.m. NEUROLOGICAL CONSULTATION REASON FOR CONSULTATION: Syncopal spell. This is a 62-year-old female who is overweight, who has been in the usual state until yesterday when she was putting boxes in her trunk, and without any warning, apparently she blacked out. She went to the floor and the neighbor saw her and they went to see her, and then they called the in to see her. There was no jerking activity, eyes not rolled back, no tongue biting, no sphincter dysfunction. As soon as she came to, she recognized her and they brought her to the emergency room where they did a CAT scan of the brain which was negative and on the blood work they found that the blood sugar was 60, so the question was if this was related to hypoglycemia. The patient takes multiple medications including pain medication, psychotropic medications, and taking insulin because she is diabetic. At the present time, the patient is doing okay. She is having some headache because she hit the back of her head. She denies any visual disturbance, no dizziness, no speech and no swallowing difficulty. PAST MEDICAL HISTORY: Hypothyroidism, obstructive sleep apnea on CPAP, hypertension, obesity. She weighs about 239 pounds. ALLERGIES: LEVEMIR. PAST SURGICAL HISTORY: She does not drink. She stopped smoking. She is and lives with her . MEDICATIONS: List of medications, multiple medications. She is taking Buspar 50 mg, several times a day. She is taking Cymbalta 120 mg daily. Gabapentin 300 mg 3 times a day. Trazodone 100 mg at bedtime. She is taking MS-Contin. Belbuca 75 mg twice a day. Oxcarbazepine 300 mg p.o. at night given by her psychiatrist. The patient also states she has history of fibromyalgia and depression. REVIEW OF SYSTEMS: Noncontributory. PHYSICAL EXAMINATION GENERAL: A well-developed lady who seems to be fully alert, feeling comfortable in bed. VITAL SIGNS: Blood pressure 119/63, pulse 59, temperature 97.3. LUNGS: Clear to auscultation. HEART: Regular sinus rhythm. No murmur. ABDOMEN: No tenderness. MUSCULOSKELETAL: Lower extremities with no edema and no cyanosis, and no clubbing. NEUROLOGIC: Alert. Oriented x3. Speech is clear. No dysarthria or dysphagia. Cranial nerves: Pupils are both equal and reactive. Extraocular movements were full. No nystagmus. Visual field was normal. No facial weakness. Tongue protrudes midline. Motor power: Upper and lower extremities shows no evidence of focal weakness in either proximal or distal muscles. Plantar stimulation down bilaterally. Coordination: [id number] was normal. HEAD: Normocephalic. Tenderness on the back of the head because of trauma. NECK: Supple. Normal range of motion. Carotid pulsations were present bilaterally. The patient states that she has been ambulating in the hospital in the room. LABORATORY DATA: CBC shows a white count 10,200 with a hemoglobin of 13.5, hematocrit 39, platelets 265,000. Chemistry: Sodium 131, potassium 3.5, BUN 20, creatinine 0.93, estimated GFR 59. Glucose 99 and then 67. Calcium 9.7, 2.4. Liver enzymes are normal. TSH is normal. Urine culture in progress. CT scan of the brain showed posterior vertex scalp with hematoma from the injury. Intracranial, there is no acute intracranial abnormalities. IMPRESSION: 1. Syncopal spell, unspecified, nothing to suggest seizure disorder. 2. Multiple etiologies from cardiac arrhythmia to toxic metabolic encephalopathy. 3. Hypoglycemia. 4. Hypothyroidism. 5. Hypertension. 6. History of diabetes mellitus type 2. 7. Fibromyalgia. 8. Depression. 9. Obesity. 10. Asthma. RECOMMENDATIONS: We discussed with the patient about the recent episode. We wanted to be sure there was no evidence of generalized seizure that we are dealing with as this is the first time it happened. There is no reason for her to have seizures. She never had a seizure in the past. There is no family history of seizure. She has not had any significant head trauma prior to this, no major strokes, no infections of the brain. My main opinion is probably is a combination of multiple medications that she is taking. I agree with Dr. Srinivasan that she is taking multiple medications. I think this should be reevaluated by psychiatry and see if they are able to discontinue a few of the medications. Job#: [id number]
[2017-09-14] MEDS: METFORMIN HCL 500 MG TAB PO SCH (17:40)
[2017-09-14] MEDS ORDERED: OXCARBAZEPINE 300 MG TAB PO SCH (21:00)
[2017-09-14] MEDS ORDERED: ATORVASTATIN 20 MG TAB PO SCH (21:00)
[2017-09-15] MEDS: SODIUM CHLORIDE 0.9% 1000ML 1,000 ML IV SCH (02:54)
[2017-09-15 05:09] VITALS: BP 130/64
[2017-09-15] MEDS ORDERED: LEVOTHYROXINE SODIUM 100 MCG TAB PO SCH (06:00)
[2017-09-15 06:51] LABS: ANION GAP 13.5 mmol/L (8-16); BLOOD UREA NITROGEN 21 mg/dL (7-26); BUN/CREATININE RATIO 25 (6-25); CALCIUM 9.1 mg/dL (8.4-10.2); CARBON DIOXIDE 29 mmol/L (22-29); CHLORIDE 100 mmol/L (98-107); CREATININE, SERUM 0.85 mg/dL (0.57-1.11); EST GLOMERULAR FILTRATION RATE > 60 ML/MIN (60-); GLUCOSE 110 mg/dL (74-118); POTASSIUM 3.5 mmol/L (3.5-5.1); SODIUM 139 mmol/L (136-145)
[2017-09-15 07:30] VITALS: BP 132/64
[2017-09-15] MEDS: INSULIN REGULAR, HUMAN 100 UNIT/1 ML 3ML VIAL SQ SCH (07:30)
[2017-09-15 08:18] VITALS: BP 132/64
[2017-09-15] MEDS: METFORMIN HCL 500 MG TAB PO SCH (08:31)
[2017-09-15] MEDS ORDERED: LOSARTAN POTASSIUM 25 MG TAB PO SCH (09:00)
[2017-09-15] MEDS ORDERED: LEVOTHYROXINE SODIUM 112 MCG TAB PO SCH (09:00)
[2017-09-15] MEDS ORDERED: (Leflunomide 10 MG) PO SCH (09:00)
[2017-09-15] MEDS ORDERED: DULOXETINE HCL 20 MG DELAYED RELEASE PO SCH (09:00)
[2017-09-15] MEDS ORDERED: LORATADINE/PSEUDOEPHEDRINE 24 HR SR TAB PO SCH (09:00)
[2017-09-15] MEDS ORDERED: CYMBALTA20 MG PO (10:21)
--- NOTE | 2017-09-15 10:38 | Cardiology Report ---
DATE OF STUDY: ECHOCARDIOGRAM M-MODE: Normal chamber wall dimensions. Normal contractility. Normal mitral and aortic valves. No pericardial effusion. SECTOR SCAN: Normal chamber wall dimensions. Normal contractility. Normal mitral, aortic and tricuspid valves. No pericardial effusion. CARDIAC DOPPLER STUDY WITH COLOR: Trace aortic and tricuspid regurgitation. CONCLUSION 1. Left ventricular ejection fraction is approximately 65%. 2. Trace aortic and tricuspid regurgitation. Job#: [id number] RI cc:LUIZ MEDRANO M.D.
--- NOTE | 2017-09-15 12:14 | Discharge Summary ---
CLINICAL HISTORY: This is a 62-year-old white woman admitted via the emergency room because of syncope, striking the back of her head causing a scalp hematoma. Her blood sugar at the time of admission was 62, eventually dropping down to 59; however, in the past, this patient has had even lower sugars without any evidence of syncope. With eating, her blood sugar returned to the normal range at 110 and remained stable. Sodium was 131 at the time of admission, this was felt to be due to combination of hydrochlorothiazide as well as oxcarbazepine in combination with excessive fluid intake. It is recommended to her that she stop the oxcarbazepine at least for the short term and to decrease her fluid intake. She was given correction medication with sodium increasing to the normal range. She was seen in consultation by neurology, who found the patient did not actually have a seizure episode. At the time of admission, the patient's QT was prolonged with corrected QT of 485. This was felt to be the cause of her syncope. Wellbutrin, Plaquenil, and Belbuca was all thought to be causing QT prolongation, there may be other medications as well. We decided eventually to cut her Cymbalta down to 20 mg per day and to have her return to the family doctor to see if most of her other medications could be discontinued. She was encouraged to continue to take atorvastatin 20 mg per day, lower dose of Lispro insulin possibly in the range of 8 units per meal, and lower dose of Toujeo possibly in the range of 25 units per day. Levothyroxine remains the same at 112 mcg with her thyroid functions being normal, Claritin that may discontinue, Losartan 25 mg per day, metformin 500 mg p.o. t.i.d., MS Contin 50 mg p.o. daily p.r.n. pain, hydrochlorothiazide 25 mg per day is continued, but she will have to decrease her fluid intake in combination. Rest of the medications she will have to review with her family doctor to continue. She will see Dr. Tegan Riley in 1 week. DISCHARGE DIAGNOSIS: Same as on admission. LAKIA DONOHUE MD Job#: [id number] VAS cc:Tegan Riley MD
== END 2017-09-15 11:28 | disposition home or self-care (01) ==
LOC: ER 14:51 → ERHOLD 19:16 → IMCU 21:44
PROVIDERS: ADMIT Internal Medicine Cardiovascular Disease; ATTEND Internal Medicine Cardiovascular Disease
DX: R55 Syncope and collapse (principal); R51 Headache; S01.01XA Laceration without foreign body of scalp, initial encounter; E11.649 Type 2 diabetes mellitus with hypoglycemia without coma; Z79.4 Long term (current) use of insulin; M06.9 Rheumatoid arthritis, unspecified; E03.9 Hypothyroidism, unspecified; G47.33 Obstructive sleep apnea (adult) (pediatric); E66.9 Obesity, unspecified; R56.9 Unspecified convulsions; E87.1 Hypo-osmolality and hyponatremia; E78.5 Hyperlipidemia, unspecified; F32.9 Major depressive disorder, single episode, unspecified; F11.90 Opioid use, unspecified, uncomplicated; G92 Toxic encephalopathy; M79.7 Fibromyalgia; J45.909 Unspecified asthma, uncomplicated; W18.39XA Other fall on same level, initial encounter; Y93.89 Activity, other specified; Y92.89 Other specified places as the place of occurrence of the external cause; S00.03XA Contusion of scalp, initial encounter; T43.215A Adverse effect of selective serotonin and norepinephrine reuptake inhibitors, initial encounter; T45.8X5A Adverse effect of other primarily systemic and hematological agents, initial encounter
CPT/HCPCS: 12001; 36415 ×3; 70450; 71045; 80048; 80053; 81001; 82550; 82553; 82948 ×3; 83735; 83880; 84436; 84443; 84479; 84484; 85025; 85610; 85730; 87086; 93005 ×3; 93306; 99284; G0378 ×3; J2001; J7030 ×2

== ENCOUNTER → 2017-11-26 | Outpatient (CLI) | payer OTHER ==
[~2017-11-26] MED LIST changes: +BIOTIN2500 MCG PO; +BUPRENORPHINE BU; +CYMBALTA20 MG PO; +GABAPENTIN300 MG PO; +HYDROCHLOROTHIA25 MG PO; +HYDROXYCHLOROQ200 MG PO; +LEFLUNOMIDE10 MG PO; +LOSARTAN POTASS25 MG PO; +MS CONTIN15 MG PO; +OXCARBAZEPINE300 MG PO; +PANTOPRAZOLE SO20 MG PO; +TRAZODONE HCL100 MG PO; +VITAMIN D32000 UNIT PO
== END ==
LOC: DX 11:02
PROVIDERS: ATTEND Psychiatry & Neurology Psychiatry
DX: F33.9 Major depressive disorder, recurrent, unspecified (principal)
CPT/HCPCS: 93005